=== PATIENT | female | born 1970 | race Caucasian/White ===

== ENCOUNTER 2021-05-26 17:28 | Emergency (ER) | payer OTHER ==
[2015-03-03 22:50] VITALS: BP 93/60
[~2021-05-26] VITALS: Ht 160 cm; Wt 100.0 kg
[~2021-05-26 17:28] MED LIST: ALPR0.5T6 PO; ASPI325T11 PO; ATOR40TA59 PO; CITA10TA8 PO; CLOP75TA57 PO; GABA-586 PO; IBUP800T19 PO; LISI-517 PO; MELA3TAB4 PO; MELO15TA23 PO; METO25TA4 PO; OXYC1TAB15 PO; ZOLP10TA4 PO; aspirin; gabapentin; ibuprofen; mobic
== END 2021-05-26 20:08 | disposition left against medical advice (07) ==
LOC: ER 17:28
DX: T63.441A Toxic effect of venom of bees, accidental (unintentional), initial encounter (principal); L53.8 Other specified erythematous conditions; Z53.21 Procedure and treatment not carried out due to patient leaving prior to being seen by health care provider; Y92.89 Other specified places as the place of occurrence of the external cause